=== PATIENT | female | born 1980 | race Caucasian/White ===

== ENCOUNTER → 2023-09-05 10:29 | Outpatient (CLI) | payer OTHER, SELFPAY | PROVIDERS: Referring Provider Family Medicine; Visit Provider Family Medicine | DX: Z23 Encounter for immunization (principal) | CPT/HCPCS: 90471; 90686 ==

== ENCOUNTER → 2024-08-28 14:46 | Outpatient (CLI) | payer OTHER, SELFPAY | PROVIDERS: Referring Provider Internal Medicine; Visit Provider Internal Medicine | DX: Z23 Encounter for immunization (principal) | CPT/HCPCS: 90471; 90656 ==

== ENCOUNTER → 2025-04-08 10:26 | Outpatient (CLI) | payer OTHER, SELFPAY ==
--- NOTE | 2025-04-08 10:32 | DI.RAD.S_ITS ---
PROCEDURE: XR ANKLE LT MIN 3V INDICATIONS: fell off curb this am, pain swelling to lateral malleolus TECHNIQUE: 3 views of the ankle were acquired. COMPARISON: None. FINDINGS: Bones: There is a mildly displaced fracture of the distal fibular tip. No additional fractures are detected. The talar dome demonstrates no alistair abnormality. Soft tissues: Soft tissue swelling is seen laterally. There is a tibiotalar joint effusion. IMPRESSION: Mildly displaced fracture of the fibular tip. Dictated by: Sravan Elizabeth M.D. on 04/08/2025 at 9:47 Approved by: Sravan Elizabeth M.D. on 04/08/2025 at 9:48
== END ==
PROVIDERS: PCP Family Medicine; Referring Provider Physician Assistant; Visit Provider Physician Assistant
DX: S82.832A Other fracture of upper and lower end of left fibula, initial encounter for closed fracture (principal); W10.1XXA Fall (on)(from) sidewalk curb, initial encounter
CPT/HCPCS: 73610